=== PATIENT | female | born 1960 | race Hispanic/Latino ===

== ENCOUNTER 2021-06-05 19:08 | Inpatient (IN) | payer OTHER ==
[~2021-06-05] VITALS: Ht 162.6 cm; Wt 180.9 kg
[~2021-06-05 19:08] MED LIST: APIX2.5T PO; BUSP5TAB3 PO; FERR324T10 PO; HYDR-4060 PO; HYDR12.54 PO; LISI40TA9 PO; VENL-53 PO
[2021-06-05] MEDS ORDERED: MECLIZINE HCL 25 MG TABLET PO ONE (19:30)
[2021-06-05 19:48] LABS: BASOPHILS % (AUTO) 0.2 % (0.0-5.0); HEMATOCRIT 29.8 % (36-48); LYMPHOCYTES % (AUTO) 5.4 % (21.0-51.0); MEAN CORPUSCULAR HEMOGLOBIN 26.6 pg (27.0-33.0); MEAN CORPUSCULAR HGB CONC 29.9 g/dL (32.0-36.0); MONOCYTES % (AUTO) 6.5 % (3.0-13.0); PLATELET COUNT (AUTO) 397 K/uL (130-400); RED BLOOD CELL COUNT(AUTO) 3.35 MIL/uL (4.00-5.50); RED CELL DISTRIBUTION WIDTH 15.8 % (11.0-15.5); WHITE BLOOD COUNT (AUTO) 17.3 K/uL (4.8-10.8)
[2021-06-05 20:00] LABS: POTASSIUM 4.5 mmol/L (3.5-5.1)
[2021-06-05 20:11] LABS: ALBUMIN 2.1 g/dL (3.5-5.0); BILIRUBIN,TOTAL 0.2 mg/dL (0.2-1.0); TOTAL PROTEIN, SERUM 7.4 g/dL (6.0-8.3)
[2021-06-05 20:15] LABS: B-TYPE NATRIURETIC PEPTIDE 271 pg/mL (0-100)
[2021-06-05] MEDS ORDERED: CEFTRIAXONE 1G VIAL IVP ONE (20:30)
[2021-06-05] MEDS ORDERED: AZITHROMYCIN 250 MG TABLET PO ONE ×2 (20:30→22:49)
[2021-06-05 20:31] LABS: CRP QUANTITATIVE 265.1 mg/L (0.00-9.0)
[2021-06-05] MEDS ORDERED: 0.9%NACL 1000ML 525 ML IV ONE (21:00)
[2021-06-05 21:35] LABS: APPEARANCE,URINE CLOUDY (CLEAR); BILIRUBIN,URINE SMALL (NEGATIVE); COLOR,URINE YELLOW (YELLOW); GLUCOSE, URINE (UA) NEGATIVE (NEGATIVE); KETONES,URINE 5 mg/dL (NEGATIVE); LEUKOCYTE ESTERASE ,URINE MODERATE (NEGATIVE); NITRATE,URINE NEGATIVE (NEGATIVE); OCCULT BLOOD,URINE MODERATE (NEGATIVE); PH,URINE 5.5 (5.0-8.0); PROTEIN,URINE 100 mg/dL (NEGATIVE)
[2021-06-05] MEDS ORDERED: ESCI5TAB16 PO (21:38)
[2021-06-05 21:44] LABS: BACTERIA,URINE Moderate /HPF (None Seen); SQUAMOUS EPITHELIAL CELL,UR Few /HPF (0-2); WBC,URINE >100 /HPF (0-1)
[2021-06-05 21:45] LABS: MUCUS,URINE Rare LPF (None Seen)
[2021-06-05] MEDS ORDERED: ACETAMINOPHEN 325 MG TAB PO PRN (22:00)
[2021-06-05] MEDS ORDERED: HYDROCODONE/ACETAMINOPHEN 5/325 MG TAB PO PRN (22:00)
[2021-06-05] MEDS ORDERED: PHARMACY COMMUNICATION MISC SCH ×2 (22:00→22:30)
[2021-06-05] MEDS ORDERED: MORPHINE 4 MG SYG IV PRN (22:00)
[2021-06-05 22:44] LABS: ABG BASE EXCESS -2.4 mmol/L (-2.0-3.0); ABG HCO3 23.3 mmol/L (21.0-28.0); ABG OXYGEN SATURATION 91.8 % (95.0-99.0); ABG PCO2 44 mmHg (32-45)
[2021-06-05] MEDS ORDERED: CEFTRIAXONE 1G VIAL ONE (22:49)
[2021-06-05] MEDS: ZOSYN 3.375GM+NS 50ML 50 ML IV SCH (22:53)
[2021-06-05] MEDS: 0.9%NACL 1000ML 1,000 ML IV SCH (22:53)
[2021-06-06] MEDS: ZOSYN 3.375GM+NS 50ML 50 ML IV SCH ×2 (05:10→18:53)
[2021-06-06 05:31] LABS: BASOPHILS % (AUTO) 0.1 % (0.0-5.0); EOSINOPHILS % (AUTO) 0.1 % (0.0-8.0); HEMATOCRIT 28.9 % (36-48); LYMPHOCYTES % (AUTO) 7.8 % (21.0-51.0); MEAN CORPUSCULAR HGB CONC 29.1 g/dL (32.0-36.0); MEAN CORPUSCULAR VOLUME 89.5 fL (79-99); MONOCYTES % (AUTO) 7.8 % (3.0-13.0); NEUTROPHILS % (AUTO) 83.2 % (40.0-77.0); PLATELET COUNT (AUTO) 350 K/uL (130-400); RED BLOOD CELL COUNT(AUTO) 3.23 MIL/uL (4.00-5.50); RED CELL DISTRIBUTION WIDTH 15.9 % (11.0-15.5); WHITE BLOOD COUNT (AUTO) 14.7 K/uL (4.8-10.8)
[2021-06-06 05:48] LABS: CREATININE 3.8 mg/dL (0.5-1.5); MAGNESIUM 1.9 mg/dL (1.80-2.40); PHOSPHORUS 4.8 mg/dL (2.5-4.9); POTASSIUM 4.6 mmol/L (3.5-5.1)
[2021-06-06] MEDS: FAMOTIDINE 20MG TAB PO SCH (08:42)
[2021-06-06] MEDS: HEPARIN 5,000 UNIT VIAL SQ SCH ×3 (08:42→20:16)
[2021-06-06 09:51] LABS: AMPHET/METH SCREEN,URINE NEGATIVE (NEGATIVE); BARBITURATE SCREEN, URINE NEGATIVE (NEGATIVE); BENZODIAZEPINES SCREEN,URINE NEGATIVE (NEGATIVE); CANNABINOID SCREEN,URINE NEGATIVE (NEGATIVE); COCAINE SCREEN,URINE NEGATIVE (NEGATIVE); OPIATE SCREEN,URINE NEGATIVE (NEGATIVE); PHENCYCLIDINE SCREEN,URINE NEGATIVE (NEGATIVE)
[2021-06-06 09:52] LABS: CREATININE,URINE RANDOM 355 mg/dL (30-135); SODIUM,URINE RANDOM 22 mmol/l (40-220)
[2021-06-06] MEDS: 0.9%NACL 1000ML 1,000 ML IV SCH (11:20)
[2021-06-06] MEDS: LACTULOSE 20 GM/30 ML UDCUP PO SCH ×2 (15:10→20:16)
[2021-06-06 17:08] VITALS: BP 90/45
[2021-06-06 20:00] VITALS: BP 109/55
[2021-06-06] MEDS: RIFAXIMIN 550 MG TABLET PO SCH (20:16)
[2021-06-06] MEDS ORDERED: LACTATED RINGERS 1000ML 1,095 ML IV ONE (22:00)
[2021-06-06] MEDS ORDERED: MIDODRINE HCL 5 MG TABLET PO ONE (22:00)
[2021-06-06 23:33] LABS: ABG BASE EXCESS -4.7 mmol/L (-2.0-3.0); ABG HCO3 23.7 mmol/L (21.0-28.0); ABG OXYGEN SATURATION 94.1 % (95.0-99.0); ABG PCO2 58 mmHg (32-45)
[2021-06-07] VITALS (22 sets, daily range): BP systolic 74–132; BP diastolic 39–70
[2021-06-07] MEDS: 0.9%NACL 1000ML 1,000 ML IV SCH ×2 (01:47→12:47)
[2021-06-07 04:31] LABS: BASOPHILS % (AUTO) 0.4 % (0.0-5.0); EOSINOPHILS % (AUTO) 0.7 % (0.0-8.0); HEMATOCRIT 27.8 % (36-48); MEAN CORPUSCULAR HEMOGLOBIN 26.8 pg (27.0-33.0); MEAN CORPUSCULAR HGB CONC 29.5 g/dL (32.0-36.0); MEAN CORPUSCULAR VOLUME 90.8 fL (79-99); MONOCYTES % (AUTO) 5.7 % (3.0-13.0); NEUTROPHILS % (AUTO) 82.3 % (40.0-77.0); PLATELET COUNT (AUTO) 321 K/uL (130-400); RED BLOOD CELL COUNT(AUTO) 3.06 MIL/uL (4.00-5.50); RED CELL DISTRIBUTION WIDTH 16.1 % (11.0-15.5); WHITE BLOOD COUNT (AUTO) 11.4 K/uL (4.8-10.8)
[2021-06-07 04:51] LABS: ALBUMIN 1.7 g/dL (3.5-5.0); BILIRUBIN,TOTAL 0.2 mg/dL (0.2-1.0); CREATININE 4.5 mg/dL (0.5-1.5); POTASSIUM 4.9 mmol/L (3.5-5.1); TOTAL PROTEIN, SERUM 6.4 g/dL (6.0-8.3)
[2021-06-07] MEDS: LACTULOSE 20 GM/30 ML UDCUP PO SCH ×3 (05:23→20:03)
[2021-06-07] MEDS: ZOSYN 3.375GM+NS 50ML 50 ML IV SCH ×2 (05:23→17:46)
[2021-06-07] MEDS: RIFAXIMIN 550 MG TABLET PO SCH ×2 (08:39→20:02)
[2021-06-07] MEDS: FAMOTIDINE 20MG TAB PO SCH (08:39)
[2021-06-07] MEDS: MIDODRINE HCL 5 MG TABLET PO SCH ×3 (08:40→20:03)
[2021-06-07] MEDS: HEPARIN 5,000 UNIT VIAL SQ SCH ×3 (08:41→20:02)
[2021-06-07] MEDS ORDERED: 0.9%NACL 1000ML 1,000 ML IV SCH (20:00)
[2021-06-07] MEDS ORDERED: VANCOMYCIN 750MG VIAL IVPB ONE (21:30)
[2021-06-07] MEDS ORDERED: VANCOMYCIN PROTOCOL PER PHARMACY IV SCH (21:30)
[2021-06-07] MEDS ORDERED: 0.9% NACL 250ML IVPB ONE (21:30)
[2021-06-07] MEDS ORDERED: VANCOMYCIN 2GM/500ML NS IV SCH ×2 (22:00)
[2021-06-07] MEDS ORDERED: VANCOMYCIN 750MG 750 MG in 0.9% NACL 250ML 250 ML IVPB ONE (22:30)
[2021-06-08] VITALS (28 sets, daily range): BP systolic 86–119; BP diastolic 33–64
[2021-06-08] MEDS: MEROPENEM 1 GM VIAL IVP SCH ×2 (03:24→09:02)
[2021-06-08 03:48] LABS: BASOPHILS % (AUTO) 0.5 % (0.0-5.0); EOSINOPHILS % (AUTO) 1.2 % (0.0-8.0); HEMATOCRIT 28.8 % (36-48); LYMPHOCYTES % (AUTO) 12.1 % (21.0-51.0); MEAN CORPUSCULAR HEMOGLOBIN 26.1 pg (27.0-33.0); MEAN CORPUSCULAR HGB CONC 28.8 g/dL (32.0-36.0); MEAN CORPUSCULAR VOLUME 90.6 fL (79-99); MONOCYTES % (AUTO) 5.2 % (3.0-13.0); NEUTROPHILS % (AUTO) 80.3 % (40.0-77.0); PLATELET COUNT (AUTO) 375 K/uL (130-400); RED BLOOD CELL COUNT(AUTO) 3.18 MIL/uL (4.00-5.50); RED CELL DISTRIBUTION WIDTH 16.3 % (11.0-15.5); WHITE BLOOD COUNT (AUTO) 10.8 K/uL (4.8-10.8)
[2021-06-08 04:14] LABS: % IRON SATURATION 26.7 % (22-44)
[2021-06-08 04:29] LABS: ALBUMIN 1.7 g/dL (3.5-5.0); BILIRUBIN,DIRECT 0.1 mg/dL (0.0-0.3); BILIRUBIN,TOTAL 0.2 mg/dL (0.2-1.0); CREATININE 4.6 mg/dL (0.5-1.5); POTASSIUM 4.7 mmol/L (3.5-5.1); TOTAL PROTEIN, SERUM 6.6 g/dL (6.0-8.3)
[2021-06-08] MEDS: LACTULOSE 20 GM/30 ML UDCUP PO SCH ×3 (05:16→21:44)
[2021-06-08 07:26] LABS: ABG BASE EXCESS -7.2 mmol/L (-2.0-3.0); ABG HCO3 21.1 mmol/L (21.0-28.0); ABG OXYGEN SATURATION 92.2 % (95.0-99.0); ABG PCO2 54 mmHg (32-45)
[2021-06-08] MEDS ORDERED: PHARMACY COMMUNICATION MISC SCH (07:30)
[2021-06-08] MEDS: MIDODRINE HCL 5 MG TABLET PO SCH ×3 (09:01→21:45)
[2021-06-08] MEDS: FAMOTIDINE 20MG TAB PO SCH (09:02)
[2021-06-08] MEDS: RIFAXIMIN 550 MG TABLET PO SCH ×2 (09:02→21:44)
[2021-06-08] MEDS: HEPARIN 5,000 UNIT VIAL SQ SCH ×3 (09:02→21:00)
[2021-06-08] MEDS ORDERED: RENAL DOSE IV ONE (11:00)
[2021-06-08] MEDS ORDERED: MEROPENEM 500 MG VIAL IVP SCH (13:30)
[2021-06-08] MEDS: SOLU-MEDROL 40MG VIAL IVP SCH ×2 (14:09→17:11)
[2021-06-08] MEDS ORDERED: DEXTROSE 50%-WATER 50 ML DISP.SYRIN IV PRN (16:00)
[2021-06-08] MEDS ORDERED: GLUCAGON 1MG KIT 1 MG ML IM PRN (16:00)
[2021-06-08] MEDS: INSULIN HUMULIN R 100 UNIT/ML 3ML SQ SCH ×2 (16:30→21:00)
[2021-06-08] MEDS: IPRATROPIUM/ALBUTEROL SULFATE 3 ML SOLUTION IH SCH (19:11)
[2021-06-08] MEDS: MEROPENEM 500 MG VIAL IVP SCH (21:46)
[2021-06-09] VITALS (7 sets, daily range): BP systolic 96–123; BP diastolic 42–63
[2021-06-09] MEDS: SOLU-MEDROL 40MG VIAL IVP SCH ×5 (00:17→23:29)
[2021-06-09] MEDS: IPRATROPIUM/ALBUTEROL SULFATE 3 ML SOLUTION IH SCH ×5 (00:54→23:07)
[2021-06-09 04:04] LABS: BASOPHILS % (AUTO) 0.1 % (0.0-5.0); HEMATOCRIT 30.5 % (36-48); MEAN CORPUSCULAR HEMOGLOBIN 25.8 pg (27.0-33.0); MEAN CORPUSCULAR HGB CONC 28.9 g/dL (32.0-36.0); MEAN CORPUSCULAR VOLUME 89.4 fL (79-99); MONOCYTES % (AUTO) 1.3 % (3.0-13.0); NEUTROPHILS % (AUTO) 91.7 % (40.0-77.0); PLATELET COUNT (AUTO) 412 K/uL (130-400); RED BLOOD CELL COUNT(AUTO) 3.41 MIL/uL (4.00-5.50); RED CELL DISTRIBUTION WIDTH 16.2 % (11.0-15.5); WHITE BLOOD COUNT (AUTO) 7.9 K/uL (4.8-10.8)
[2021-06-09 04:14] LABS: CREATININE 3.3 mg/dL (0.5-1.5); POTASSIUM 5.2 mmol/L (3.5-5.1)
[2021-06-09] MEDS: LACTULOSE 20 GM/30 ML UDCUP PO SCH ×3 (05:58→21:02)
[2021-06-09] MEDS: INSULIN HUMULIN R 100 UNIT/ML 3ML SQ SCH ×4 (05:58→21:06)
[2021-06-09] MEDS: MEROPENEM 500 MG VIAL IVP SCH ×2 (09:24→21:05)
[2021-06-09] MEDS: FAMOTIDINE 20MG TAB PO SCH (09:26)
[2021-06-09] MEDS: MIDODRINE HCL 5 MG TABLET PO SCH ×3 (09:26→21:05)
[2021-06-09] MEDS: RIFAXIMIN 550 MG TABLET PO SCH ×2 (09:26→21:04)
[2021-06-09] MEDS: HEPARIN 5,000 UNIT VIAL SQ SCH ×3 (09:29→21:03)
[2021-06-09] MEDS ORDERED: NA ZIRCON CYCLOSIL(LOKELMA 10GM) PO ONE (17:00)
[2021-06-10 03:06] VITALS: BP 116/52
[2021-06-10 04:21] LABS: BASOPHILS % (AUTO) 0.1 % (0.0-5.0); HEMATOCRIT 30.6 % (36-48); LYMPHOCYTES % (AUTO) 6.5 % (21.0-51.0); MEAN CORPUSCULAR HEMOGLOBIN 25.8 pg (27.0-33.0); MEAN CORPUSCULAR HGB CONC 29.4 g/dL (32.0-36.0); MEAN CORPUSCULAR VOLUME 87.7 fL (79-99); MONOCYTES % (AUTO) 3.4 % (3.0-13.0); NEUTROPHILS % (AUTO) 89.1 % (40.0-77.0); PLATELET COUNT (AUTO) 463 K/uL (130-400); RED BLOOD CELL COUNT(AUTO) 3.49 MIL/uL (4.00-5.50); RED CELL DISTRIBUTION WIDTH 16.3 % (11.0-15.5); WHITE BLOOD COUNT (AUTO) 7.7 K/uL (4.8-10.8)
[2021-06-10 04:46] LABS: ALBUMIN 2.1 g/dL (3.5-5.0); BILIRUBIN,DIRECT 0.1 mg/dL (0.0-0.3); BILIRUBIN,TOTAL 0.2 mg/dL (0.2-1.0); CREATININE 2.8 mg/dL (0.5-1.5); POTASSIUM 5.1 mmol/L (3.5-5.1); TOTAL PROTEIN, SERUM 7.1 g/dL (6.0-8.3)
[2021-06-10] MEDS: SOLU-MEDROL 40MG VIAL IVP SCH ×4 (05:23→23:25)
[2021-06-10] MEDS: IPRATROPIUM/ALBUTEROL SULFATE 3 ML SOLUTION IH SCH ×4 (06:41→23:42)
[2021-06-10] MEDS: INSULIN HUMULIN R 100 UNIT/ML 3ML SQ SCH ×4 (07:30→20:53)
[2021-06-10] MEDS ORDERED: NA ZIRCON CYCLOSIL(LOKELMA 10GM) PO ONE (08:00)
[2021-06-10 08:38] VITALS: BP 113/64
[2021-06-10] MEDS: MIDODRINE HCL 5 MG TABLET PO SCH ×3 (08:40→20:58)
[2021-06-10] MEDS: MEROPENEM 500 MG VIAL IVP SCH ×2 (08:40→20:58)
[2021-06-10] MEDS: FAMOTIDINE 20MG TAB PO SCH (08:41)
[2021-06-10] MEDS: RIFAXIMIN 550 MG TABLET PO SCH ×2 (08:41→20:54)
[2021-06-10] MEDS: LACTULOSE 20 GM/30 ML UDCUP PO SCH ×2 (08:41→20:54)
[2021-06-10] MEDS: HEPARIN 5,000 UNIT VIAL SQ SCH ×3 (08:42→20:52)
[2021-06-10] MEDS ORDERED: LACT PO (11:05)
[2021-06-10] MEDS ORDERED: Midodrine Hcl PO (11:25)
[2021-06-10 12:34] VITALS: BP 151/77
[2021-06-10 16:30] VITALS: BP 140/76
[2021-06-10 20:03] VITALS: BP 129/68
[2021-06-10] MEDS ORDERED: 0.9%NACL 10ML VIAL ONE (23:22)
[2021-06-11] VITALS (7 sets, daily range): BP systolic 132–146; BP diastolic 59–73
[2021-06-11 04:37] LABS: BASOPHILS % (AUTO) 0.2 % (0.0-5.0); HEMATOCRIT 32.4 % (36-48); LYMPHOCYTES % (AUTO) 6.8 % (21.0-51.0); MEAN CORPUSCULAR HEMOGLOBIN 26.1 pg (27.0-33.0); MEAN CORPUSCULAR HGB CONC 29.3 g/dL (32.0-36.0); MONOCYTES % (AUTO) 3.2 % (3.0-13.0); NEUTROPHILS % (AUTO) 88.9 % (40.0-77.0); PLATELET COUNT (AUTO) 498 K/uL (130-400); RED BLOOD CELL COUNT(AUTO) 3.64 MIL/uL (4.00-5.50); RED CELL DISTRIBUTION WIDTH 16.2 % (11.0-15.5); WHITE BLOOD COUNT (AUTO) 6.6 K/uL (4.8-10.8)
[2021-06-11 04:43] LABS: ALBUMIN 2.5 g/dL (3.5-5.0); BILIRUBIN,TOTAL 0.2 mg/dL (0.2-1.0); CREATININE 2.2 mg/dL (0.5-1.5); POTASSIUM 5.1 mmol/L (3.5-5.1); TOTAL PROTEIN, SERUM 7.2 g/dL (6.0-8.3)
[2021-06-11] MEDS: SOLU-MEDROL 40MG VIAL IVP SCH ×4 (05:02→23:42)
[2021-06-11] MEDS: INSULIN HUMULIN R 100 UNIT/ML 3ML SQ SCH ×4 (06:08→20:14)
[2021-06-11] MEDS: IPRATROPIUM/ALBUTEROL SULFATE 3 ML SOLUTION IH SCH ×4 (07:00→23:16)
[2021-06-11] MEDS: MEROPENEM 500 MG VIAL IVP SCH ×2 (07:57→20:16)
[2021-06-11] MEDS: LACTULOSE 20 GM/30 ML UDCUP PO SCH ×2 (07:57→20:16)
[2021-06-11] MEDS: FAMOTIDINE 20MG TAB PO SCH (07:59)
[2021-06-11] MEDS: RIFAXIMIN 550 MG TABLET PO SCH ×2 (07:59→20:16)
[2021-06-11] MEDS: MIDODRINE HCL 5 MG TABLET PO SCH ×3 (07:59→20:16)
[2021-06-11] MEDS: HEPARIN 5,000 UNIT VIAL SQ SCH ×3 (08:04→20:15)
[2021-06-11] MEDS ORDERED: 0.9%NACL 10ML VIAL ONE (19:52)
[2021-06-11] MEDS: BENZONATATE 100 MG CAPSULE PO PRN (20:16)
[2021-06-12] MEDS: BENZONATATE 100 MG CAPSULE PO PRN (02:22)
[2021-06-12 04:00] VITALS: BP 131/62
[2021-06-12 04:16] LABS: BASOPHILS % (AUTO) 0.1 % (0.0-5.0); HEMATOCRIT 31.1 % (36-48); LYMPHOCYTES % (AUTO) 5.4 % (21.0-51.0); MEAN CORPUSCULAR HEMOGLOBIN 26.2 pg (27.0-33.0); MEAN CORPUSCULAR HGB CONC 29.6 g/dL (32.0-36.0); MEAN CORPUSCULAR VOLUME 88.6 fL (79-99); MONOCYTES % (AUTO) 2.4 % (3.0-13.0); NEUTROPHILS % (AUTO) 90.4 % (40.0-77.0); PLATELET COUNT (AUTO) 453 K/uL (130-400); RED BLOOD CELL COUNT(AUTO) 3.51 MIL/uL (4.00-5.50); RED CELL DISTRIBUTION WIDTH 16.5 % (11.0-15.5); WHITE BLOOD COUNT (AUTO) 7.1 K/uL (4.8-10.8)
[2021-06-12 04:34] LABS: ALBUMIN 2.5 g/dL (3.5-5.0); BILIRUBIN,DIRECT 0.1 mg/dL (0.0-0.3); BILIRUBIN,TOTAL 0.2 mg/dL (0.2-1.0); CREATININE 1.7 mg/dL (0.5-1.5); POTASSIUM 5.3 mmol/L (3.5-5.1)
[2021-06-12] MEDS: INSULIN HUMULIN R 100 UNIT/ML 3ML SQ SCH ×3 (06:05→16:30)
[2021-06-12] MEDS: IPRATROPIUM/ALBUTEROL SULFATE 3 ML SOLUTION IH SCH ×3 (06:36→18:00)
[2021-06-12 07:00] VITALS: BP 131/64
[2021-06-12] MEDS: MIDODRINE HCL 5 MG TABLET PO SCH ×2 (08:09→14:18)
[2021-06-12] MEDS: FAMOTIDINE 20MG TAB PO SCH (08:10)
[2021-06-12] MEDS: RIFAXIMIN 550 MG TABLET PO SCH (08:10)
[2021-06-12] MEDS: LACTULOSE 20 GM/30 ML UDCUP PO SCH (08:10)
[2021-06-12] MEDS: MEROPENEM 500 MG VIAL IVP SCH (08:11)
[2021-06-12] MEDS: SOLU-MEDROL 40MG VIAL IVP SCH ×2 (08:13→17:37)
[2021-06-12] MEDS: HEPARIN 5,000 UNIT VIAL SQ SCH ×2 (08:19→14:26)
[2021-06-12 11:00] VITALS: BP 153/74
[2021-06-12 16:13] VITALS: BP 153/76
== END 2021-06-12 18:40 | DRG 871 ==
LOC: EDH 19:08 → EDHIP 21:47 → 4BH 06-06 14:16 → 2CH 06-07 12:29 → 2DH 06-08 17:33 → 3AH 06-12 15:05
PROVIDERS: ADMIT Hospitalist; ATTEND Hospitalist
PROC: 5A09357 Assistance with Respiratory Ventilation, Less than 24 Consecutive Hours, Continuous Positive Airway Pressure (ICD-10-PCS; principal; 2021-06-06)
PROC: 5A09357 Assistance with Respiratory Ventilation, Less than 24 Consecutive Hours, Continuous Positive Airway Pressure (ICD-10-PCS; 2021-06-07)
PROC: 5A09357 Assistance with Respiratory Ventilation, Less than 24 Consecutive Hours, Continuous Positive Airway Pressure (ICD-10-PCS; 2021-06-08)
PROC: 5A09357 Assistance with Respiratory Ventilation, Less than 24 Consecutive Hours, Continuous Positive Airway Pressure (ICD-10-PCS; 2021-06-09)
PROC: 5A09357 Assistance with Respiratory Ventilation, Less than 24 Consecutive Hours, Continuous Positive Airway Pressure (ICD-10-PCS; 2021-06-11)
DX: A41.50 Gram-negative sepsis, unspecified (principal); N17.0 Acute kidney failure with tubular necrosis; E43 Unspecified severe protein-calorie malnutrition; J96.21 Acute and chronic respiratory failure with hypoxia; J96.22 Acute and chronic respiratory failure with hypercapnia; G93.41 Metabolic encephalopathy; N39.0 Urinary tract infection, site not specified; E66.2 Morbid (severe) obesity with alveolar hypoventilation; J44.1 Chronic obstructive pulmonary disease with (acute) exacerbation; Z68.44 Body mass index [BMI] 60.0-69.9, adult; B96.1 Klebsiella pneumoniae [K. pneumoniae] as the cause of diseases classified elsewhere; I10 Essential (primary) hypertension; Z20.822 Contact with and (suspected) exposure to COVID-19; D64.9 Anemia, unspecified; E88.09 Other disorders of plasma-protein metabolism, not elsewhere classified; R53.81 Other malaise; M19.90 Unspecified osteoarthritis, unspecified site; I27.20 Pulmonary hypertension, unspecified; R29.6 Repeated falls; K72.90 Hepatic failure, unspecified without coma; K74.60 Unspecified cirrhosis of liver; Z53.20 Procedure and treatment not carried out because of patient's decision for unspecified reasons; F41.8 Other specified anxiety disorders; Z77.22 Contact with and (suspected) exposure to environmental tobacco smoke (acute) (chronic); Z96.652 Presence of left artificial knee joint; Z88.6 Allergy status to analgesic agent; Z90.49 Acquired absence of other specified parts of digestive tract; Z82.3 Family history of stroke; Z80.9 Family history of malignant neoplasm, unspecified
CPT/HCPCS: 36415; 36600; 70450; 71045; 73560; 74176; 76705; 76770; 80048; 80053; 80061; 80076; 80305; 81001; 82140; 82533; 82550; 82570; 82728; 82803; 82948; 83036; 83540; 83550; 83605; 83735; 83880; 84100; 84145; 84300; 84443; 84484; 85025; 86140; 87040; 87077; 87088; 87186; 87635; 93005; 93306; 94640; 94660; 94760; 97039; C9803; G0378; J0696; J1644; J1815; J2185; J2543; J2920; J3370; J7030; J7040; J7050; J7120